=== PATIENT | female | born 1955 | race American Indian/Alaskan Native ===

== ENCOUNTER 2020-08-06 17:04 | Emergency (ER) | payer BC ==
[~2020-08-06 17:04] MED LIST: DEXTROSE 50% IN WATER (25GM) 50 ML SYRINGE IV ONE
--- NOTE | 2020-08-06 17:16 | Emergency Department Report ---
ED Altered Mental Status HPI - General Chief Complaint: Hypoglycemia Stated Complaint: HYPOGLYCEMIA PUI?: No Time Seen by Provider: 08/06/20 17:04 Source: EMS Mode of arrival: Stretcher Limitations: Altered Mental Status, Physical Limitation - History of Present Illness Initial Comments: Patient is a 64-year-old female that presents emergency room for altered mental status secondary to hypoglycemia. Patient brought in by EMS. Report received from EMS. EMS states that the patient was at her block greaser's office for a DVT study and became altered. The cardiology office staff then gave the patient soda and juice and this patient was still hypoglycemic and worsening mentation. EMS states that they checked her sugar and it was 30. EMS unable to get IV access. Patient denies pain. Patient states she took her insulin and did not eat food with her insulin. Patient denies chest pain or shortness of breath. Patient denies headache. Patient denies recent travel. Patient denies recent international travel. Patient denies exposure to the novel coronavirus. Patient denies sick contacts. Patient denies fever and chills. Patient denies cough. Patient denies diarrhea. Patient denies coming in contact with anybody with symptoms of the novel coronavirus. Complaint: altered mental status, confusion -: Sudden Severity: severe Consistency of Symptoms: constant - Related Data Allergies Allergy/AdvReac Type Severity Reaction Status Date / Time No Known Allergies Allergy Unverified 08/06/20 17:08 ED Review of Systems ROS: Stated complaint: HYPOGLYCEMIA Other details as noted in HPI Constitutional: denies: chills, fever Eyes: denies: eye pain, eye discharge, vision change ENT: denies: ear pain, throat pain Respiratory: denies: cough, shortness of breath, wheezing Cardiovascular: denies: chest pain, palpitations Endocrine: no symptoms reported Gastrointestinal: denies: abdominal pain, nausea, diarrhea Genitourinary: denies: urgency, dysuria, discharge Musculoskeletal: denies: back pain, joint swelling, arthralgia Skin: denies: rash, lesions Neurological: as per HPI, confusion. denies: headache, weakness, paresthesias Psychiatric: denies: anxiety, depression Hematological/Lymphatic: denies: easy bleeding, easy bruising ED Past Medical Hx - Past Medical History Previous Medical History?: Yes Hx Hypertension: Yes Hx Congestive Heart Failure: Yes Hx Diabetes: Yes Additional medical history: One kidney - Surgical History Past Surgical History?: Yes Additional Surgical History: Kidney removal - Family History Family history: no significant - Social History Smoking Status: Former Smoker Substance Use Type: None ED Physical Exam - General Limitations: Altered Mental Status General appearance: in no apparent distress, lethargic (But easily arousable) - Head Head exam: Present: atraumatic, normocephalic - Eye Eye exam: Present: normal appearance, PERRL Pupils: Present: normal accommodation - ENT ENT exam: Present: mucous membranes dry - Neck Neck exam: Present: normal inspection - Respiratory Respiratory exam: Present: normal lung sounds bilaterally. Absent: respiratory distress, wheezes, rales - Cardiovascular Cardiovascular Exam: Present: regular rate, normal rhythm. Absent: systolic murmur, diastolic murmur, rubs, gallop - GI/Abdominal GI/Abdominal exam: Present: soft, normal bowel sounds. Absent: distended, tenderness, guarding - Extremities Exam Extremities exam: Present: normal inspection - Back Exam Back exam: Present: normal inspection - Neurological Exam Neurological exam: Present: oriented X3 - Psychiatric Psychiatric exam: Present: normal affect, normal mood - Skin Skin exam: Present: warm, dry, intact, normal color. Absent: rash - Assessment Assessment Interval: Baseline - Level of Consciousness 1a. Level of Consciousness: alert/keenly responsive - LOC Questions 1b. LOC Questions: answers both correctly - LOC Command 1c. LOC Commands: performs tasks correctly - Best Gaze 2. Best Gaze: normal - Visual 3. Visual: no visual loss - Facial Palsy 4. Facial Palsy: normal symmetrical movement - Motor Arm 5a. Motor Arm Left: no drift 5b. Motor Arm Right: no drift - Motor Leg 6a. Motor Leg Left: no drift 6b. Motor Leg Right: no drift - Limb Ataxia 7. Limb Ataxia: absent - Sensory 8. Sensory: normal - Best Language 9. Best Language: no aphasia - Dysarthria 10. Dysarthria: normal - Extinction and Inattention 11. Extinction/Inattention: no abnormality - Scoring Total Score: 0 Stroke Severity: No Stroke Symptoms ED Course Vital Signs 08/06/20 08/06/20 08/06/20 17:32 17:36 17:45 Temperature 97.0 F L Pulse Rate 68 70 Respiratory 22 19 Rate Blood Pressure 226/111 O2 Sat by Pulse 97 97 Oximetry - Reevaluation(s) Reevaluation #1: Initial evaluation done. Patient given glucagon 1 mg. Patient had an IV started by the bedside nurse and then the patient was given D50. We will monitor the patient's blood sugar and mentation. 08/06/20 17:12 Reevaluation #2: Patient is alert and oriented x4. Patient is answering all questions appropriately. Patient is not drowsy or lethargic anymore. Patient states she is feeling much better. 08/06/20 17:13 Reevaluation #3: Repeat blood sugar is 170. 08/06/20 17:23 Reevaluation #4: Patient blood pressure remains high. Patient denies headache. Patient denies blurry vision. Patient denies neck pain. Patient will be given 20 mg hydralazine. Patient states she missed her blood pressure medications today as well. 08/06/20 17:49 Reevaluation #5: Patient was given clonidine after the hydralazine and the patient blood pressure reduced below 200. Patient's current blood pressure is 190/80. Patient states she feeling much better. Patient blood sugar is stable. Patient instructed not to miss meals. I discussed all results and clinical findings with patient. I discussed plan of care with patient. Patient agrees with plan of care. Patient is stable for discharge. Patient will be discharged home. Patient given discharge instructions. Patient voiced understanding of discharge instructions. 08/06/20 19:10 - Lab Data Result diagrams: 08/06/20 17:29 08/06/20 17:29 Lab Results 08/06/20 08/06/20 Range/Units 17:29 17:29 WBC 5.5 (4.5-11.0) K/mm3 RBC 3.94 (3.65-5.03) M/mm3 Hgb 12.5 (10.1-14.3) gm/dl Hct 37.9 (30.3-42.9) % MCV 96 (79-97) fl MCH 32 (28-32) pg MCHC 33 (30-34) % RDW 15.1 (13.2-15.2) % Plt Count 212 (140-440) K/mm3 Lymph % (Auto) 20.3 (13.4-35.0) % [place] % (Auto) 10.1 H (0.0-7.3) % Eos % (Auto) 1.3 (0.0-4.3) % Baso % (Auto) 0.5 (0.0-1.8) % Lymph # (Auto) 1.1 L (1.2-5.4) K/mm3 [place] # (Auto) 0.6 (0.0-0.8) K/mm3 Eos # (Auto) 0.1 (0.0-0.4) K/mm3 Baso # (Auto) 0.0 (0.0-0.1) K/mm3 Seg Neutrophils % 67.8 (40.0-70.0) % Seg Neutrophils # 3.7 (1.8-7.7) K/mm3 Sodium 139 (137-145) mmol/L Potassium 3.2 L (3.6-5.0) mmol/L Chloride 102.4 (98-107) mmol/L Carbon Dioxide 25 (22-30) mmol/L Anion Gap 15 mmol/L BUN 15 (7-17) mg/dL Creatinine 1.2 (0.6-1.2) mg/dL Estimated GFR 55 ml/min BUN/Creatinine Ratio 13 % Glucose 147 H (65-100) mg/dL Calcium 9.1 (8.4-10.2) mg/dL Total Bilirubin 0.50 (0.1-1.2) mg/dL AST 16 (5-40) units/L ALT 13 (7-56) units/L Alkaline Phosphatase 53 (35-129) units/L Total Protein 7.3 (6.3-8.2) g/dL Albumin 3.8 L (3.9-5) g/dL Albumin/Globulin Ratio 1.1 % - Medical Decision Making Patient is a 64-year-old female who presents emergency room with altered mental status secondary to hypoglycemia. Patient was given D50 and her blood sugar improved. Patient's was oriented x3 the entire time she was in the ER. Patient was lethargic but easily arousable on initial evaluation. Patient immediately improved after the D50. Patient then found to have hypertension. Patient had hypertensive urgency due to not taking her blood pressure medications today. Patient missed her meal and her blood pressure medication because she was at her doctor's office. Patient was sent here from her doctor's office building. Patient blood pressure improved with treatment. Patient blood sugar improved with treatment. Patient responded well to treatment. Patient's blood pressure became to a more exceptional range and the patient will be discharged. Patient had labs which were essentially unremarkable. Patient stable for discharge. Patient discharged home. - Differential Diagnosis Altered mental status, hypoglycemia. Critical Care Time: Yes Critical care time in (mins) excluding proc time.: 35 Critical care attestation.: If time is entered above; I have spent that time in minutes in the direct care of this critically ill patient, excluding procedure time. Critical Care Time: 35 minutes ED Disposition Clinical Impression: Hypoglycemia, Hypertensive urgency Altered mental state Qualifiers: Altered mental status type: unspecified Qualified Code(s): R41.82 - Altered mental status, unspecified Disposition: DC-01 TO HOME OR SELFCARE Is pt being admited?: No Does the pt Need Aspirin: No Condition: Stable Instructions: Hypoglycemia, Hypertension, Adult, [id number], Hypoglycemia, [id number], Blood Glucose Monitoring, Adult Additional Instructions: Patient to follow-up with primary care in 2 to 3 days. Patient to follow-up with block greaser in 2 to 3 days. Patient to rest. Patient to increase water. Patient to avoid strenuous exercise or heavy lifting until cleared by block greaser. Patient to eat a diabetic diet. Patient did not miss meals. Patient to continue all medications. Patient to monitor blood pressure at home. Patient to monitor blood sugar at home. Patient to keep a blood pressure and blood sugar log. Patient to take blood pressure and blood sugar log to all follow-up appointments. Patient to return to the ER if condition worsens, changes or new symptoms arise. Referrals: LEONA COCHRAN MD [Primary Care Provider] - 2-3 Days Time of Disposition: 19:21
[2020-08-06 17:43] LABS: Basophils % (Auto) 0.5 % (0.0-1.8); Eosinophils # (Auto) 0.1 K/mm3 (0.0-0.4); Eosinophils % (Auto) 1.3 % (0.0-4.3); Hematocrit 37.9 % (30.3-42.9); Hemoglobin 12.5 gm/dl (10.1-14.3); Lymphocytes # (Auto) 1.1 K/mm3 (1.2-5.4); Lymphocytes % (Auto) 20.3 % (13.4-35.0); Mean Corpuscular HGB Conc 33 % (30-34); Mean Corpuscular Volume 96 fl (79-97); Monocytes # (Auto) 0.6 K/mm3 (0.0-0.8); Monocytes % (Auto) 10.1 % (0.0-7.3); Platelet Count 212 K/mm3 (140-440); Red Blood Count 3.94 M/mm3 (3.65-5.03); Red Cell Distribution Width 15.1 % (13.2-15.2)
[2020-08-06] MEDS ORDERED: hydrALAZINE 20 MG/1 ML INJ IV ONE (17:48)
[2020-08-06] MEDS ORDERED: DEXTROSE 50% IN WATER (25GM) 50 ML SYRINGE IV ONE (18:00)
[2020-08-06 18:04] LABS: Albumin 3.8 g/dL (3.9-5); Calcium 9.1 mg/dL (8.4-10.2)
[2020-08-06] MEDS ORDERED: cloNIDine 0.2 MG TAB PO ONE (18:24)
[2020-08-06 19:28] VITALS: BP 170/80
== END 2020-08-06 19:45 | disposition home or self-care (01) ==
LOC: ED 17:04
DX: E11.649 Type 2 diabetes mellitus with hypoglycemia without coma (principal); I16.0 Hypertensive urgency; R41.82 Altered mental status, unspecified; I11.0 Hypertensive heart disease with heart failure; I50.9 Heart failure, unspecified; Z98.890 Other specified postprocedural states; Z87.891 Personal history of nicotine dependence
CPT/HCPCS: 36415; 80053; 82962; 85025; 96374; 96375; 99284; J0360